=== PATIENT | male | born 1955 | race Caucasian/White ===

== ENCOUNTER 2018-03-23 17:57 | Emergency (ER) | payer OTHER ==
[~2018-03-23] VITALS: Ht 185.4 cm; Wt 81.6 kg
[2018-03-23 18:10] VITALS: BP 145/84
== END 2018-03-23 22:00 | disposition left against medical advice (07) ==
LOC: ER 17:57
DX: S61.217A Laceration without foreign body of left little finger without damage to nail, initial encounter (principal); Z53.21 Procedure and treatment not carried out due to patient leaving prior to being seen by health care provider; X58.XXXA Exposure to other specified factors, initial encounter; Y93.89 Activity, other specified; Y99.8 Other external cause status; Y92.89 Other specified places as the place of occurrence of the external cause

== ENCOUNTER 2018-03-23 23:34 | Emergency (ER) | payer OTHER, MEDICAID ==
[~2018-03-23] VITALS: Ht 185.4 cm; Wt 81.6 kg
[2018-03-23 23:59] VITALS: BP 148/87
[2018-03-24] MEDS ORDERED: MEPERIDINE HCL (50 MG/ML) 1 ML VIAL IM ONE (01:15)
[2018-03-24] MEDS ORDERED: ONDANSETRON HCL 4 MG/2 ML VIAL IM ONE (01:15)
== END 2018-03-24 03:12 | disposition home or self-care (01) ==
LOC: ER 23:34
DX: L84 Corns and callosities (principal); Z88.0 Allergy status to penicillin; Z59.0 Homelessness
CPT/HCPCS: 70450; 96372; 99284; J2175; J2405